=== PATIENT | male | born 1990 | race Caucasian/White ===

== ENCOUNTER 2017-07-12 18:24 | Emergency (ER) | payer OTHER ==
[2017-07-12 18:24] VITALS: BMI 23.4
[2017-07-12 18:33] VITALS: BP 123/76; PULSE 80; RESP 20; TEMP 98.1; O2SAT 99
--- NOTE | 2017-07-12 18:41 | ED PDOC ---
HPI: Abdomen Time Seen by Provider: 07/12/17 18:41 Chief Complaint (Nursing): Abdominal Pain Chief Complaint (Provider): abd pain History Per: Patient Additional Complaint(s): 27 year old male presents with abdominal pain on and of for 2 weeks. Patient states he feels bloated after every meal. He also has had mild nausea with no vomiting or diarrhea. Patient denies fever or chills. Patient denies any regular use of alcohol and denies any drug use. Patient has had normal appetite. Last bowel movement was today. Patient states he does have history of gastritis but has been off of prilosec for several months. No associated chest pain, SOB or FLORES. PMD: none Past Medical History Reviewed: Historical Data, Nursing Documentation, Vital Signs Vital Signs: Last Vital Signs Temp 98.1 F 07/12/17 18:30 Pulse 80 07/12/17 18:30 Resp 20 07/12/17 18:30 BP 123/76 07/12/17 18:30 Pulse Ox 99 07/12/17 19:26 - Medical History PMH: Gastritis - Surgical History Surgical History: No Surg Hx - Family History Family History: States: No Known Family Hx - Living Arrangements Living Arrangements: With Family - Social History Current smoker - smoking cessation education provided: No Alcohol: Occasional Drugs: Denies - Home Medications Home Medications: Ambulatory Orders Medication Instructions Recorded Omeprazole 20 mg PO DAILY #30 ecc 09/01/13 - Allergies Allergies/Adverse Reactions: Allergies Allergy/AdvReac Type Severity Reaction Status Date / Time No Known Allergies Allergy Unverified 09/01/13 15:34 Review of Systems ROS Statement: Except As Marked, All Systems Reviewed And Found Negative Constitutional: Negative for: Fever, Chills, Weakness Cardiovascular: Negative for: Chest Pain Respiratory: Negative for: Cough Gastrointestinal: Positive for: Nausea, Abdominal Pain. Negative for: Vomiting , Diarrhea, Constipation, Melena, Hematochezia, Hematemesis, Rectal Pain Genitourinary Male: Negative for: Dysuria Neurological: Negative for: Dizziness Physical Exam - Reviewed Nursing Documentation Reviewed: Yes Vital Signs Reviewed: Yes - Physical Exam Appears: Positive for: Well, Non-toxic, No Acute Distress Skin: Positive for: Normal Color. Negative for: Rash Eye Exam: Positive for: Normal appearance Cardiovascular/Chest: Positive for: Regular Rate, Rhythm Respiratory: Positive for: Normal Breath Sounds Gastrointestinal/Abdominal: Positive for: Tenderness (epigastric, RUQ, no distention, rebound, guarding) Back: Negative for: L CVA Tenderness, R CVA Tenderness Extremity: Positive for: Normal ROM Neurologic/Psych: Positive for: Alert, Oriented - ECG O2 Sat by Pulse Oximetry: 99 Pulse Ox Interpretation: Normal Medical Decision Making Medical Decision Makin27 year old with abdominal pain Plan: CBC CMP Lipase Urine dip Abd US IV pepcid and zofran PO tylenol Disposition - Clinical Impression Clinical Impression: Abdominal pain - Patient ED Disposition Is Patient to be Admitted: Transfer of Care - Disposition Disposition: Transfer of Care Disposition Time: 20:00 Condition: STABLE Forms: [employer] (Sammarinese) Patient Signed Over To: Gloria Melton Handoff Comments: Signed out pending diagnostic testing results and final disposition
[2017-07-12] MEDS ORDERED: Sodium Chloride 0.9% 1,000 ML IV STA (19:25)
[2017-07-12 20:10] LABS: BASO % 0.2 % (0.0-2.0); EOS # 0.1 K/uL (0.0-0.7); EOS % 1.5 % (0.0-4.0); HEMOGLOBIN 15.3 g/dL (12.0-18.0); LYMPH # 1.6 K/uL (1.0-4.3); LYMPH % 36.7 % (20.0-40.0); MEAN CELL VOLUME 87.6 fl (80.0-94.0); MEAN CORPUSCULAR HEMOGLOBIN 30.5 pg (27.0-31.0); MEAN CORPUSCULAR HGB CONC 34.8 g/dL (33.0-37.0); MEAN PLATELET VOLUME 10.4 fl (7.2-11.7); MONO # 0.5 K/uL (0.0-0.8); MONO % 10.7 % (0.0-10.0); NEUT # 2.2 K/uL (1.8-7.0); NEUT % 50.9 % (50.0-75.0); NRBC % 0.2 % (0.0-0.0); RBC 5.04 Mil/uL (4.40-5.90); RED CELL DISTRIBUTION WIDTH 13.9 % (11.5-14.5); WHITE BLOOD COUNT 4.4 K/uL (4.8-10.8)
[2017-07-12 20:15] LABS: ALB/GLOB RATIO 1.5 (1.0-2.1); ALBUMIN 4.1 g/dL (3.5-5.0); ALT/SGPT 46 U/L (21-72); AST/SGOT 25 U/L (17-59); BLOOD UREA NITROGEN 12 mg/dl (9-20); CALCIUM 9.2 mg/dL (8.4-10.2); GFR AFRICAN-AMERICAN > 60; GFR NON-AFRICAN AMERICAN > 60; LIPASE 84 U/L (23-300)
--- NOTE | 2017-07-12 20:18 | ED PDOC ---
- Laboratory Results Result Diagrams: 07/12/17 19:55 07/12/17 19:55 Urine dip results: Negative for: Leukocyte Esterase, Blood, Nitrate, Ketones, Glucose, Bilirubin, Protein - ECG O2 Sat by Pulse Oximetry: 99 (RA) Pulse Ox Interpretation: Normal Medical Decision Making Medical Decision Making: Case endorsed to medical underwriter, Rico Melton PA-C, at 1999 due to shift change. Pertinent details reviewed. Patient pending U/S evaluation, re-evaluation, and further disposition. 2014 Labs reviewed and grossly unremarkable. Awaiting U/S evaluation. 2049 Patient in U/S. 2199 U/S reviewed, radiology report follows EXAM: US Abdomen Complete CLINICAL HISTORY: 27 years old, male; Pain; Abdominal pain; Epigastric; Additional info: Ruq, epigastric pain TECHNIQUE: Real-time ultrasound of the abdomen (complete) with image documentation. COMPARISON: No relevant prior studies available. FINDINGS: Liver: Normal echogenicity. No mass. No intrahepatic bile duct dilatation. Gallbladder: No gallstones. No wall thickening. No pericholecystic fluid. No sonographic Elias's sign. Common bile duct: No dilatation. No stones. Pancreas: Unremarkable as visualized. Kidneys: Normal echogenicity. No hydronephrosis. Spleen: No splenomegaly. Aorta: Unremarkable. No aneurysm. Inferior vena cava: Unremarkable. Free fluid: No significant free fluid. IMPRESSION: 1. No acute findings. Thank you for allowing us to participate in the care of your patient. Dictated and Authenticated by: Mp Méndez MD 07/12/2017 9:51 PM Eastern Time ([place] & [place]) 2220 Patient remains awake, alert, oriented x 3 and is laying in bed comfortably reporting resolution of symptoms. Tolerating PO intake without difficulty in ED. On exam, neck is supple, lungs are clear, abdomen is soft and non tender, heart is at regular rate and rhythm. Repeat neuro shows no focal findings. Educated on diet choices to help relieve current symptoms. VSS, stable for discharge. Based on history, exam and diagnostic results plan will be for discharge home with outpatient follow up. Advised to follow up with primary care physician/clinic in 1-2 days without fail. Advised to take medication as prescribed. Return to the emergency room at any time for any new or worsening symptoms. Patient states he fully agrees with and understands discharge instructions. States that he agrees with the plan and disposition. Verbalized and repeated discharge instructions and plan. I have given the patient opportunity to ask any additional questions. Disposition Counseled Patient/Family Regarding: Studies Performed, Diagnosis, Need For Followup, Rx Given - Clinical Impression Clinical Impression: Abdominal pain, Gastritis - POA Present On Arrival: None - Disposition Referrals: [facility] [Outside] Disposition: Routine/Home Disposition Time: 22:26 Condition: STABLE Prescriptions: Omeprazole Magnesium [Prilosec Otc] 20 mg PO DAILY #10 tab Instructions: Gastritis, Luce Diet, Acute Abdomen (Belly Pain), Nausea and Vomiting, Adult (DC) Forms: [employer] (Sammarinese) Print Language: ROMANSH Results - Lab Results Lab Results: 07/12/17 07/12/17 19:55 19:55 WBC 4.4 L RBC 5.04 Hgb 15.3 Hct 44.1 MCV 87.6 MCH 30.5 MCHC 34.8 RDW 13.9 Plt Count 156 MPV 10.4 Neut % (Auto) 50.9 Lymph % (Auto) 36.7 [place] % (Auto) 10.7 H Eos % (Auto) 1.5 Baso % (Auto) 0.2 Neut # (Auto) 2.2 Lymph # (Auto) 1.6 [place] # (Auto) 0.5 Eos # (Auto) 0.1 Baso # (Auto) 0.0 Sodium 142 Potassium 3.7 Chloride 104 Carbon Dioxide 23 Anion Gap 19 BUN 12 Creatinine 0.6 L Est GFR ( Amer) > 60 Est GFR (Non-Af Amer) > 60 Random Glucose 101 Calcium 9.2 Total Bilirubin 0.4 AST 25 ALT 46 Alkaline Phosphatase 59 Total Protein 6.9 Albumin 4.1 Globulin 2.8 Albumin/Globulin Ratio 1.5 Lipase 84
--- NOTE | 2017-07-12 21:51 | US ---
EXAM: US Abdomen Complete CLINICAL HISTORY: 27 years old, male; Pain; Abdominal pain; Epigastric; Additional info: Ruq, epigastric pain TECHNIQUE: Real-time ultrasound of the abdomen (complete) with image documentation. COMPARISON: No relevant prior studies available. FINDINGS: Liver: Normal echogenicity. No mass. No intrahepatic bile duct dilatation. Gallbladder: No gallstones. No wall thickening. No pericholecystic fluid. No sonographic Elias's sign. Common bile duct: No dilatation. No stones. Pancreas: Unremarkable as visualized. Kidneys: Normal echogenicity. No hydronephrosis. Spleen: No splenomegaly. Aorta: Unremarkable. No aneurysm. Inferior vena cava: Unremarkable. Free fluid: No significant free fluid. IMPRESSION: 1.No acute findings.
== END 2017-07-12 22:35 | disposition home or self-care (01) ==
LOC: H.ER 18:24
DX: K29.70 Gastritis, unspecified, without bleeding (principal); R10.9 Unspecified abdominal pain
CPT/HCPCS: 76700; 80053; 83690; 85025; 96360; 99283; J2405; J7040

== ENCOUNTER 2018-07-10 21:51 | Emergency (ER) | payer SELFPAY ==
[2018-07-10 21:51] VITALS: BMI 23.4
[2018-07-10 22:07] VITALS: O2SAT 98
[2018-07-10] MEDS: Sodium Chloride 0.9% 1,000 ML IV STA (22:20)
[2018-07-10 22:43] LABS: BASO % 0.3 % (0.0-2.0); EOS % 0.1 % (0.0-4.0); HEMOGLOBIN 16.3 g/dL (12.0-18.0); LYMPH % 20.5 % (20.0-40.0); MEAN CELL VOLUME 86.5 fl (80.0-94.0); MEAN CORPUSCULAR HGB CONC 34.7 g/dL (33.0-37.0); MEAN PLATELET VOLUME 8.8 fl (7.2-11.7); MONO # 0.6 K/uL (0.0-0.8); MONO % 6.4 % (0.0-10.0); NEUT # 7.2 K/uL (1.8-7.0); NEUT % 72.7 % (50.0-75.0); NRBC % 0.2 % (0.0-0.0); RBC 5.44 Mil/uL (4.40-5.90); RED CELL DISTRIBUTION WIDTH 13.4 % (11.5-14.5); WHITE BLOOD COUNT 9.9 K/uL (4.8-10.8)
[2018-07-10 22:50] LABS: ALB/GLOB RATIO 1.4 (1.0-2.1); ALBUMIN 3.9 g/dL (3.5-5.0); ALT/SGPT 165 U/L (21-72); AST/SGOT 152 U/L (17-59); BLOOD UREA NITROGEN 13 mg/dl (9-20); CALCIUM 7.4 mg/dL (8.4-10.2); GFR NON-AFRICAN AMERICAN > 60; LIPASE 231 U/L (23-300)
--- NOTE | 2018-07-10 23:34 | ED PDOC ---
HPI: Abdomen Time Seen by Provider: 07/10/18 22:09 Chief Complaint (Nursing): Abdominal Pain Chief Complaint (Provider): abdominal pain/vomiting History Per: Patient History/Exam Limitations: no limitations Current Symptoms Are (Timing): Still Present Location Of Pain/Discomfort: Diffuse Associated Symptoms: Nausea, Vomiting Additional History Per: Patient Additional Complaint(s): 28 year old male with history of alcohol abuse, presents to the emergency room c/o diffuse abdominal pain and vomiting since yesterday worse in the last 5 hours. Patient states he has been binge drinking for last 10 days after not drinking alcohol for 1 year. He states his last drink was 5 hours ago, he states he was drinking beer and has been consistently vomiting since then. Patient denies fever and diarrhea. Past Medical History Reviewed: Historical Data, Nursing Documentation, Vital Signs Vital Signs: Last Vital Signs Temp 99.2 F 07/10/18 22:04 Pulse 104 H 07/10/18 22:04 Resp 19 07/10/18 22:04 BP 114/68 07/10/18 22:04 Pulse Ox 98 07/10/18 22:04 Primary Care Provider: FAMILY PROVIDER,NO - Medical History PMH: No Chronic Diseases, Gastritis - Surgical History Surgical History: No Surg Hx - Family History Family History: States: Unknown Family Hx - Living Arrangements Living Arrangements: With Family - Social History Alcohol: > 2 Drinks/Day Drugs: Denies - Immunization History Hx Tetanus Toxoid Vaccination: Yes Hx Influenza Vaccination: Yes Hx Pneumococcal Vaccination: Yes - Home Medications Home Medications: Ambulatory Orders Medication Instructions Recorded Omeprazole 20 mg PO DAILY #30 ecc 09/01/13 Omeprazole Magnesium [Prilosec Otc] 20 mg PO DAILY #10 tab 07/12/17 Fexofenadine/Pseudoephedrine 1 each PO BID PRN #12 tab.er.12h 08/26/17 [Yumi-D 12 Hour Tablet] Omeprazole 20 mg PO DAILY #30 tablet. 07/11/18 - Allergies Allergies/Adverse Reactions: Allergies Allergy/AdvReac Type Severity Reaction Status Date / Time No Known Allergies Allergy Unverified 07/10/18 22:07 Review of Systems ROS Statement: Except As Marked, All Systems Reviewed And Found Negative Constitutional: Negative for: Fever, Chills, Sweats, Malaise Eyes: Negative for: Pain, Vision Change, Conjunctivae Inflammation, Eyelid Inflammation, Redness ENT: Negative for: Ear Pain, Ear Discharge, Nose Pain, Nose Discharge, Mouth Pain, Mouth Swelling, Throat Swelling Cardiovascular: Negative for: Chest Pain, Palpitations, Edema, Light Headedness Respiratory: Negative for: Cough, Shortness of Breath, SOB with Exertion, Wheezing Gastrointestinal: Positive for: Nausea, Vomiting, Abdominal Pain. Negative for: Diarrhea, Constipation Genitourinary Male: Negative for: Dysuria Musculoskeletal: Negative for: Neck Pain, Back Pain Neurological: Negative for: Weakness, Confusion, Dizziness Physical Exam - Reviewed Nursing Documentation Reviewed: Yes Vital Signs Reviewed: Yes - Physical Exam Appears: Positive for: Well, Non-toxic, Uncomfortable Head Exam: Positive for: ATRAUMATIC, NORMAL INSPECTION, NORMOCEPHALIC Skin: Positive for: Normal Color, Warm, DRY Eye Exam: Positive for: EOMI, Normal appearance, PERRL ENT: Positive for: Normal ENT Inspection Neck: Positive for: Normal, Painless ROM, Supple Cardiovascular/Chest: Positive for: Tachycardia Respiratory: Positive for: CNT, Normal Breath Sounds Gastrointestinal/Abdominal: Positive for: Normal Exam, Bowel Sounds (norm), Soft Back: Positive for: Normal Inspection Extremity: Positive for: Normal ROM Neurological/Psych: Positive for: Awake, Alert, Normal Tone, Oriented - Laboratory Results Result Diagrams: 07/10/18 22:00 07/10/18 22:00 Lab Results: Total Bilirubin 1.1 mg/dl (0.2-1.3) 07/10/18 22:00 AST 152 U/L (17-59) H D 07/10/18 22:00 ALT 165 U/L (21-72) H D 07/10/18 22:00 Alkaline Phosphatase 82 U/L (38-126) 07/10/18 22:00 Total Protein 6.7 G/DL (6.3-8.2) 07/10/18 22:00 Albumin 3.9 g/dL (3.5-5.0) 07/10/18 22:00 Globulin 2.7 gm/dL (2.2-3.9) 07/10/18 22:00 Albumin/Globulin Ratio 1.4 (1.0-2.1) 07/10/18 22:00 Lipase 231 U/L (23-300) 07/10/18 22:00 - ECG O2 Sat by Pulse Oximetry: 98 Medical Decision Making Medical Decision Makin:00 Labs reviewed by me. K+: 3.4- kDUR 20MEQ 02:45 Patient re-assessed at this time. Patient states he does not feel nauseous anymore, requesting something to drink. Patient to be PO challenged, will monitor for PO toleration and D/C home. 03:45 Patient has experiencing tremors in ED. Given librium. Patient tolerated PO. vs: temp:98.2 hr:88 b/p:126/74 rr:20 o2sat: 98% rm air. rx given for omeprazole Patient stable for D/C. patient given information to , [facility] and GI. Given return to ED precautions. patient states understanding and agrees with plan. Disposition - Clinical Impression Clinical Impression: Alcohol abuse, Nausea & vomiting - Patient ED Disposition Is Patient to be Admitted: No Counseled Patient/Family Regarding: Diagnosis, Need For Followup, Rx Given - Disposition Referrals: Corey Moore MD [Staff Provider] - [facility] [Outside] Alcoholics Anonymous [Outside] Disposition: Routine/Home Disposition Time: 03:00 Condition: IMPROVED Prescriptions: Omeprazole 20 mg PO DAILY #30 tablet.dr Instructions: Nausea and Vomiting, Adult (DC), Alcohol Abuse and Alcoholism (DC), Effects of Alcohol on Your Health Forms: [employer] (Austrian) Print Language: DANISH - POA Present On Arrival: None
[2018-07-11] MEDS ORDERED: Albuterol-Ipratrop 3 mg / 0.5 (3 ml) UD ONE (00:18)
[2018-07-11] MEDS ORDERED: Potassium Chloride 20 mEq ER Tab PO ONE (00:45)
[2018-07-11] MEDS: Potassium Chloride 20 mEq ER Tab PO STA (00:53)
[2018-07-11] MEDS: Multivitamin (MVI) 10 ML, Thiamine 100 MG, Folic Acid 1 MG in Sodium Chloride 0.9% 1,00... IV STA (00:55)
[2018-07-11] MEDS ORDERED: Famotidine 40 MG/5 ML PO STA (02:45)
[2018-07-11 03:43] VITALS: RESP 16
[2018-07-11 05:39] VITALS: BP 128/85; PULSE 84; TEMP 98.1
== END 2018-07-11 05:38 | disposition home or self-care (01) ==
LOC: H.ER 21:51
DX: F10.10 Alcohol abuse, uncomplicated (principal); R11.2 Nausea with vomiting, unspecified
CPT/HCPCS: 80053; 83690; 85025; 96374; 99283; G0480; J2405; J3411; J7030

== ENCOUNTER 2018-07-16 10:14 | Emergency (ER) | payer OTHER ==
[2018-07-16 10:28] VITALS: BMI 22.4
--- NOTE | 2018-07-16 11:14 | ED PDOC ---
HPI: General Adult Time Seen by Provider: 07/16/18 10:37 Chief Complaint (Nursing): Weakness/Neurological Deficit Chief Complaint (Provider): FACIAL TINGLING History Per: Patient History/Exam Limitations: no limitations Onset/Duration Of Symptoms: Hrs (SINCE 8PM LAST NIGHT ) Current Symptoms Are (Timing): Still Present Pain Scale Rating Of: 0 Additional History Per: Patient Additional Complaint(s): 28 YEAR OLD MALE WITH A HX OF ALCOHOL ABUSE PRESENTS TO THE ED C/O RIGHT SIDED FACIAL TINGLING SINCE LASTNIGHT, RADIATING TO RIGHT ARM. PATIENT STATES THIS MORNING WAKING UP WITH SAME FACIAL TINGLING, DIZZY AND GENERALIZED WEAKNESS. HE STATES AT THIS TIME TINGLING HAS SUBSIDED BUT IS CONCERNED OF HAVING AND STROKE. PATIENT RECEIVED AMBULATORY WITH STEADY GAIT. HE STATES HIS LAST ALCOHOLIC DRINK WAS 5 DAYS AGO. DENIES SOB, CHEST PAIN AND DRUG USE. NIHSS Stroke Scale - Date/Time Evaluation Performed Date Performed: 07/16/18 Time Performed: 10:30 When Was NIHSS Performed: Baseline - How Severe is the Stroke Level of Consciousness: 0=Alert LOC to Questions: 0=Both comments correct LOC to commands: 0=Obeys both correctly Best Gaze: 0=Normal Visual: 0=No visual loss Facial: 0=Normal Motor Arm - Left: 0=No drift Motor Arm - Right: 0=No drift Motor Leg - Left: 0=No drift Motor Leg - Right: 0=No drift Limb Ataxia: 0=Absent Sensory: 0=Normal Best Language: 0=No aphasia Dysarthia: 0=Normal articulation Extinction & Inattention (Neglect): 0=Normal, no object Score: 0 Past Medical History Reviewed: Historical Data, Nursing Documentation, Vital Signs Vital Signs: Last Vital Signs Temp 69 F L 07/16/18 10:26 Pulse Resp 17 07/16/18 10:26 BP 112/52 L 07/16/18 10:26 Pulse Ox 98 07/16/18 10:26 Primary Care Provider: FAMILY PROVIDER,NO - Medical History PMH: Gastritis - Surgical History Surgical History: No Surg Hx - Family History Family History: States: Unknown Family Hx - Living Arrangements Living Arrangements: With Family - Social History Alcohol: None Drugs: Denies - Immunization History Hx Tetanus Toxoid Vaccination: Yes Hx Influenza Vaccination: Yes Hx Pneumococcal Vaccination: Yes - Home Medications Home Medications: Ambulatory Orders Medication Instructions Recorded Omeprazole 20 mg PO DAILY #30 tablet. 07/11/18 - Allergies Allergies/Adverse Reactions: Allergies Allergy/AdvReac Type Severity Reaction Status Date / Time No Known Allergies Allergy Unverified 07/10/18 22:07 Review of Systems ROS Statement: Except As Marked, All Systems Reviewed And Found Negative Constitutional: Positive for: Weakness. Negative for: Fever, Chills, Sweats Eyes: Positive for: Redness (RIGHT EYE REDNESS). Negative for: Pain, Vision Change, Conjunctivae Inflammation, Eyelid Inflammation ENT: Negative for: Ear Pain, Nose Pain, Mouth Pain, Throat Pain Cardiovascular: Negative for: Chest Pain, Palpitations, Light Headedness Respiratory: Negative for: Cough, Shortness of Breath, SOB with Exertion, Wheezing Gastrointestinal: Negative for: Nausea, Vomiting, Abdominal Pain, Diarrhea Genitourinary Male: Negative for: Dysuria Musculoskeletal: Negative for: Neck Pain, Shoulder Pain, Arm Pain, Back Pain, Hand Pain, Foot Pain Physical Exam - Reviewed Nursing Documentation Reviewed: Yes Vital Signs Reviewed: Yes - Physical Exam Appears: Positive for: Well, Non-toxic, No Acute Distress Head Exam: Positive for: ATRAUMATIC, NORMAL INSPECTION, NORMOCEPHALIC Skin: Positive for: Normal Color, Warm, DRY Eye Exam: Positive for: Normal appearance, EOMI, PERRL, Conjunctival injection. Negative for: Periorbital swelling, Periorbital tenderness ENT: Positive for: Normal ENT Inspection Neck: Positive for: Normal, Painless ROM, Supple Cardiovascular/Chest: Positive for: Regular Rate, Rhythm, Chest Non Tender Respiratory: Positive for: CNT, Normal Breath Sounds Pulses-Radial (L): 2+ Pulses-Radial (R): 2+ Gastrointestinal/Abdominal: Positive for: Normal Exam, Bowel Sounds (NORMACTIVE ), Soft. Negative for: Tenderness, Distended Back: Positive for: Normal Inspection. Negative for: L CVA Tenderness, R CVA Tenderness, Vertebral Tenderness Extremity: Positive for: Normal ROM, Capillary Refill (<2 SECS) Neurological/Psych: Positive for: Awake, Alert, Normal Tone, Symmetric/Intact Strength (UPPER AND LOWER STRENGTH EQUAL AND STRONG BILATERALLY), Oriented, Gait (STEADY), Motor/Sensory Deficits (NEG FOR MOTOR DEFICITS OR SENSATION UPON EXAM. ), addictions therapist II-XII (INTACT). Negative for: Lethargic, Listless, Facial Droop - Laboratory Results Result Diagrams: 07/16/18 11:10 07/16/18 11:10 - ECG ECG: Positive for: Viewed By Me ECG Rhythm: Positive for: Sinus Rhythm Interpretation Of ECG: VIEWED AND SIGNED BY DR. SINGH Rate: 66 O2 Sat by Pulse Oximetry: 98 Medical Decision Making Medical Decision Making: --CBC --CMP --LIPID PANEL --MAGNESIUM --PHOSPHOROUS --TROPONIN --UA --UDS --ALCOHOL --CT HEAD --EKG --RE-EVAL tem:98.4 hr: 66 b/p:109/64 rr: 20 o2sat: 100% rm air 12:45 LABS REVIEWED BY ME, UNREMARKABLE. CT SCAN IS NEGATIVE. NO FURTHER SUSPICION FOR INFARCT PATIENT SYMPTOMS HAVE RESOLVED. NIH IS 0. NO FURTHER WORK-UP NEEDED IN ED. PATIENT GIVEN FOLLOW-UP WITH NEURO FOR [facility] AND [facility]. CLINICAL FINDINGS DISCUSSED WITH PATIENT, PATIENT STATES HE UNDERSTANDS AND AGREES WITH PLAN. Accession No. : [id number] Patient Name / ID : KADEN Busby / [id number] Exam Date : 07/16/2018 11:34:59 ( Approved ) Study Comment : Sex / Age : M / 28Y Creator : Melina Villatoro MD Dictator : Melina Villatoro MD L D Rn : Bleach Boiler Puller : Melina Villatoro MD Approver2 : Report Date : 07/16/2018 12:17:08 My Comment : Date of service: 07/16/2018 PROCEDURE: CT HEAD WITHOUT CONTRAST. HISTORY: facial tingling COMPARISON: None available. TECHNIQUE: Axial computed tomography images were obtained through the head/brain without intravenous contrast. Radiation dose: Total exam DLP = 753.4 mGy-cm. This CT exam was performed using one or more of the following dose reduction techniques: Automated exposure control, adjustment of the mA and/or kV according to patient size, and/or use of iterative reconstruction technique. FINDINGS: HEMORRHAGE: No intracranial hemorrhage. BRAIN: Nance-white matter differentiation is preserved. There is no abnormal extra- axial fluid collection. There is no territorial infarction. There is a 1.7 x 1.5 x 3.9 cm CSF density mass in the right retro cerebellar region with mild mass effect and leftward displacement of the intercerebellar tentorium and mild scalloping of the overlying occipital bone. VENTRICLES: The ventricles are normal in size, shape and configuration. There is a cavum vergae. CALVARIUM: There is no calvarial fracture or extracranial soft tissue swelling. PARANASAL SINUSES: Predominantly clear. MASTOID AIR CELLS: Predominantly clear. OTHER FINDINGS: None. IMPRESSION: No acute intracranial abnormality. If there is a persistent focal neurologic deficit and an ongoing clinical concern for acute infarction, an MRI of the brain without intravenous contrast would be a more sensitive modality for evaluation of hyperacute/acute ischemic infarction. 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 Disposition - Clinical Impression Clinical Impression: Facial paresthesia - Patient ED Disposition Is Patient to be Admitted: No Counseled Patient/Family Regarding: Diagnosis - Disposition Referrals: Bryn Conn MD [Medical Doctor] - Disposition: Routine/Home Disposition Time: 12:45 Condition: GOOD Instructions: Paresthesias (DC) Forms: [employer] [employer] (Tamazight) Print Language: HEBREW - POA Present On Arrival: None
[2018-07-16 11:29] VITALS: TEMP 98.4
[2018-07-16 11:30] LABS: BASO % 0.5 % (0.0-2.0); EOS # 0.1 K/uL (0.0-0.7); EOS % 1.3 % (0.0-4.0); HEMOGLOBIN 15.8 g/dL (12.0-18.0); LYMPH # 1.3 K/uL (1.0-4.3); LYMPH % 24.4 % (20.0-40.0); MEAN CELL VOLUME 88.9 fl (80.0-94.0); MEAN CORPUSCULAR HEMOGLOBIN 30.6 pg (27.0-31.0); MEAN CORPUSCULAR HGB CONC 34.4 g/dL (33.0-37.0); MONO # 0.6 K/uL (0.0-0.8); MONO % 11.8 % (0.0-10.0); NEUT # 3.3 K/uL (1.8-7.0); NRBC % 0.1 % (0.0-0.0); RBC 5.15 Mil/uL (4.40-5.90); RED CELL DISTRIBUTION WIDTH 13.8 % (11.5-14.5); WHITE BLOOD COUNT 5.3 K/uL (4.8-10.8)
[2018-07-16 11:32] LABS: URINE BILIRUBIN NEGATIVE (NEGATIVE); URINE BLOOD NEGATIVE (NEGATIVE); URINE CLARITY CLEAR (Clear); URINE COLOR STRAW (YELLOW); URINE GLUCOSE (UA) NEG (NEGATIVE); URINE LEUKOCYTE ESTERASE NEG Leu/uL (Negative); URINE PROTEIN NEGATIVE (NEGATIVE); URINE UROBILINOGEN 0.2-1.0 mg/dL (0.2-1.0)
[2018-07-16 11:37] LABS: ALB/GLOB RATIO 1.5 (1.0-2.1); ALBUMIN 4.1 g/dL (3.5-5.0); ALT/SGPT 83 U/L (21-72); AST/SGOT 52 U/L (17-59); BLOOD UREA NITROGEN 10 mg/dl (9-20); CALCIUM 8.7 mg/dL (8.4-10.2); GFR NON-AFRICAN AMERICAN > 60; HDL CHOLESTEROL 48 MG/DL (30-70)
[2018-07-16 11:40] LABS: PROTHROMBIN TIME 11.9 Seconds (9.8-13.1)
[2018-07-16 11:43] LABS: PARTIAL THROMBOPLASTIN TIME 36.1 Seconds (25.6-37.1)
[2018-07-16 11:44] LABS: LDL CHOLESTEROL 86 mg/dL (0-129)
[2018-07-16 11:48] LABS: BARBITURATES, UR NEGATIVE (NEGATIVE); BENZODIAZEPINES, UR NEGATIVE (NEGATIVE); OPIATES, UR NEGATIVE (NEGATIVE); PHENCYCLIDINE, UR NEGATIVE (NEGATIVE)
[2018-07-16 11:54] VITALS: BP 109/64; RESP 18
--- NOTE | 2018-07-16 12:20 | CT ---
Date of service: 07/16/2018 PROCEDURE: CT HEAD WITHOUT CONTRAST. HISTORY: facial tingling COMPARISON: None available. TECHNIQUE: Axial computed tomography images were obtained through the head/brain without intravenous contrast. Radiation dose: Total exam DLP = 753.4 mGy-cm. This CT exam was performed using one or more of the following dose reduction techniques: Automated exposure control, adjustment of the mA and/or kV according to patient size, and/or use of iterative reconstruction technique. FINDINGS: HEMORRHAGE: No intracranial hemorrhage. BRAIN: Nance-white matter differentiation is preserved. There is no abnormal extra-axial fluid collection. There is no territorial infarction. There is a 1.7 x 1.5 x 3.9 cm CSF density mass in the right retro cerebellar region with mild mass effect and leftward displacement of the intercerebellar tentorium and mild scalloping of the overlying occipital bone. VENTRICLES: The ventricles are normal in size, shape and configuration. There is a cavum vergae. CALVARIUM: There is no calvarial fracture or extracranial soft tissue swelling. PARANASAL SINUSES: Predominantly clear. MASTOID AIR CELLS: Predominantly clear. OTHER FINDINGS: None. IMPRESSION: No acute intracranial abnormality. If there is a persistent focal neurologic deficit and an ongoing clinical concern for acute infarction, an MRI of the brain without intravenous contrast would be a more sensitive modality for evaluation of hyperacute/acute ischemic infarction. 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
[2018-07-16 12:49] VITALS: PULSE 66; O2SAT 98
--- NOTE | 2018-07-16 15:52 | CARD ---
APPROVED REPORT Date of service: 07/16/2018 EKG Measurement Heart [id number] <Conclusion> Normal sinus rhythm with sinus arrhythmia Rightward axis Borderline ECG
== END 2018-07-16 13:41 | disposition home or self-care (01) ==
LOC: H.ER 10:14
DX: G93.0 Cerebral cysts (principal)

== ENCOUNTER 2018-07-23 10:31 | Emergency (ER) | payer OTHER ==
[2018-07-23 10:38] VITALS: BP 99/61; PULSE 70; RESP 16; TEMP 98.3; O2SAT 98; BMI 24.2
--- NOTE | 2018-07-23 10:54 | ED PDOC ---
HPI:Nausea, Vomiting, Diarrhea Additional Complaint(s): 28 y/o M with PMH of Alcohol abuse and h.pylori comes to the ER for 2 days hx of NB loose diarrhea. Patient reports multiple episodes of diarrhea in last 24 hours, every 2 hours, no blood, no abdominal pain, Mild nausea but denies any vomiting. No fever, dysuria, + normal appetite. Denies any recent travel or sick contact. PMD: none <Lety Garner - Last Filed: 07/23/18 11:59> <Jamaal Greer III - Last Filed: 07/23/18 15:26> Time Seen by Provider: 07/23/18 10:43 Chief Complaint (Nursing): Abdominal Pain Supervising Attending Note - Attestation: I have personally seen and examined this patient.: Yes I have fully participated in the care of the patient.: Yes I have reviewed all pertinent clinical information, including history, physical exam and plan: Yes - Notes: Notes:: pt seen and examined agree w findings labs unremarkable on re-eval 3pm abdomen nontender, still having slight diarrhea, no blood, ambulating well DC w supportive care and bentyl, followup PMD, diet modification followup NHC if persists <Jamaal Greer III - Last Filed: 07/23/18 15:26> Past Medical History Vital Signs: Last Vital Signs Temp 98.3 F 07/23/18 10:37 Pulse 70 07/23/18 10:37 Resp 16 07/23/18 10:37 BP 99/61 L 07/23/18 10:37 Pulse Ox 98 07/23/18 10:43 Primary Care Provider: FAMILY PROVIDER,NO - Medical History PMH: Gastritis - Family History Family History: States: Unknown Family Hx - Immunization History Hx Tetanus Toxoid Vaccination: Yes Hx Influenza Vaccination: Yes Hx Pneumococcal Vaccination: Yes <Lety Garner - Last Filed: 07/23/18 11:59> Vital Signs: Last Vital Signs Temp 98.3 F 07/23/18 10:37 Pulse 70 07/23/18 10:37 Resp 16 07/23/18 10:37 BP 99/61 L 07/23/18 10:37 Pulse Ox 98 07/23/18 11:59 <Jamaal Greer III - Last Filed: 07/23/18 15:26> - Home Medications Home Medications: Ambulatory Orders Medication Instructions Recorded Omeprazole 20 mg PO DAILY #30 tablet. 07/11/18 Dicyclomine [Bentyl] 10 mg PO TID PRN #10 cap 07/23/18 - Allergies Allergies/Adverse Reactions: Allergies Allergy/AdvReac Type Severity Reaction Status Date / Time No Known Allergies Allergy Verified 07/23/18 10:43 Review of Systems Constitutional: Positive for: Chills. Negative for: Fever Eyes: Negative for: Pain, Vision Change ENT: Negative for: Ear Pain, Ear Discharge, Nose Pain, Nose Discharge Cardiovascular: Negative for: Chest Pain, Palpitations, Orthopnea Respiratory: Negative for: Cough, Shortness of Breath Gastrointestinal: Positive for: Nausea, Diarrhea. Negative for: Vomiting, Abdominal Pain, Constipation Genitourinary Male: Negative for: Dysuria Musculoskeletal: Negative for: Neck Pain, Shoulder Pain Skin: Negative for: Rash Neurological: Negative for: Weakness Psych: Negative for: Anxiety <Lety Garner - Last Filed: 07/23/18 11:59> Physical Exam - Physical Exam Appears: Positive for: No Acute Distress Head Exam: Positive for: NORMAL INSPECTION Skin: Positive for: Normal Color. Negative for: Diaphoresis Eye Exam: Positive for: Normal appearance, EOMI, PERRL ENT: Positive for: Normal ENT Inspection, Pharynx Is (normal) Neck: Positive for: Normal, Painless ROM Cardiovascular/Chest: Positive for: Regular Rate, Rhythm, Chest Non Tender. Negative for: Edema, JVD, Murmur, Bradycardia, Tachycardia Respiratory: Positive for: Normal Breath Sounds. Negative for: Decreased Breath Sounds, Accessory Muscle Use, Crackles, Rales Gastrointestinal/Abdominal: Positive for: Bowel Sounds (hyperactive), Soft. Negative for: Tenderness, Organomegaly, Distended, Guarding, Rebound, Hernia Back: Positive for: Normal Inspection. Negative for: L CVA Tenderness, R CVA Tenderness Rectal: Positive for: Deferred Extremity: Positive for: Normal ROM. Negative for: Tenderness, Pedal Edema Neurological/Psych: Positive for: Awake, Alert, Normal Tone, Oriented, electronic assembler group leader II- XII. Negative for: Lethargic, Listless, Motor/Sensory Deficits <Lety Garner - Last Filed: 07/23/18 11:59> - Laboratory Results Result Diagrams: 07/23/18 11:25 07/23/18 11:25 - ECG O2 Sat by Pulse Oximetry: 98 - Progress ED Course And Treament: A/P: 28 y/o M with PMH of Alcohol abuse and h.pylori comes to the ER for 2 days hx of NB loose diarrhe/viral gastroenteritis. - CBC/CMP and Lipase STAT - STAT Bentyl - STAT IVF (Hypotension, no tachy or fever) - Reevaluation Case discussed with Dr. Greer, <Lety Garner - Last Filed: 07/23/18 11:59> - Laboratory Results Result Diagrams: 07/23/18 11:25 07/23/18 11:25 Lab Results: Total Bilirubin 0.2 mg/dl (0.2-1.3) 07/23/18 11:25 AST 26 U/L (17-59) 07/23/18 11:25 ALT 51 U/L (21-72) 07/23/18 11:25 Alkaline Phosphatase 65 U/L (38-126) 07/23/18 11:25 Total Protein 6.6 G/DL (6.3-8.2) 07/23/18 11:25 Albumin 3.9 g/dL (3.5-5.0) 07/23/18 11:25 Globulin 2.6 gm/dL (2.2-3.9) 07/23/18 11:25 Albumin/Globulin Ratio 1.5 (1.0-2.1) 07/23/18 11:25 Lipase 144 U/L (23-300) 07/23/18 11:25 <Jamaal Greer III - Last Filed: 07/23/18 15:26> Medical Decision Making Medical Decision Making: viral gastroenteritis <Lety Garner - Last Filed: 07/23/18 11:59> Disposition - Patient ED Disposition Is Patient to be Admitted: No - Disposition Disposition: Routine/Home Disposition Time: 11:55 <Lety Garner - Last Filed: 07/23/18 11:59> <Jamaal Greer III - Last Filed: 07/23/18 15:26> - Clinical Impression Clinical Impression: Diarrhea - Disposition Referrals: [facility], [facility] [Outside] Condition: STABLE Additional Instructions: Drink plenty of fluids, avoid dairy x5 days, return to ER for any worse or new symptoms. Prescriptions: Dicyclomine [Bentyl] 10 mg PO TID PRN #10 cap PRN Reason: Gi Distress Instructions: Diarrhea in Adolescents and Adults Forms: [facility] (Albanian) Print Language: POLISH
[2018-07-23] MEDS ORDERED: Sodium Chloride 0.9% 1,000 ML IV SCH (11:00)
[2018-07-23 11:33] LABS: BASO % 0.5 % (0.0-2.0); EOS % 0.8 % (0.0-4.0); HEMOGLOBIN 14.7 g/dL (12.0-18.0); LYMPH # 1.1 K/uL (1.0-4.3); LYMPH % 25.2 % (20.0-40.0); MEAN CELL VOLUME 90.3 fl (80.0-94.0); MEAN CORPUSCULAR HEMOGLOBIN 30.5 pg (27.0-31.0); MEAN CORPUSCULAR HGB CONC 33.7 g/dL (33.0-37.0); MEAN PLATELET VOLUME 8.9 fl (7.2-11.7); MONO # 0.5 K/uL (0.0-0.8); MONO % 10.5 % (0.0-10.0); NEUT # 2.8 K/uL (1.8-7.0); NRBC % 0.1 % (0.0-0.0); RBC 4.83 Mil/uL (4.40-5.90); RED CELL DISTRIBUTION WIDTH 14.3 % (11.5-14.5); WHITE BLOOD COUNT 4.4 K/uL (4.8-10.8)
[2018-07-23 11:49] LABS: ALB/GLOB RATIO 1.5 (1.0-2.1); ALBUMIN 3.9 g/dL (3.5-5.0); ALT/SGPT 51 U/L (21-72); AST/SGOT 26 U/L (17-59); BLOOD UREA NITROGEN 6 mg/dl (9-20); CALCIUM 8.7 mg/dL (8.4-10.2); GFR NON-AFRICAN AMERICAN > 60; LIPASE 144 U/L (23-300)
== END 2018-07-23 15:44 | disposition home or self-care (01) ==
LOC: H.ER 10:31
DX: R19.7 Diarrhea, unspecified (principal)
CPT/HCPCS: 80053; 83690; 85025; 96360; 99283; J7030